=== PATIENT | female | born 2000 | race Two or more races ===

== ENCOUNTER 2024-05-18 15:18 | Emergency (ER) | payer OTHER ==
[~2024-05-18] VITALS: Ht 160 cm; Wt 72.6 kg
[2024-05-18 15:18] VITALS: BP 144/80; TEMP 98.4
[2024-05-18 17:07] VITALS: O2SAT 98
[2024-05-19 15:43] LABS: HIV-1 p24 ANTIGEN NON REACTIVE (NONREACTIVE); HIV-1/2 ANTIBODY NON REACTIVE (NONREACTIVE)
[2024-05-20 02:07] LABS: HEPATITIS B SURFACE AB Reactive (.)
== END 2024-05-18 17:09 | disposition home or self-care (01) ==
LOC: ER 15:18
DX: S61.231A Puncture wound without foreign body of left index finger without damage to nail, initial encounter (principal); W46.0XXA Contact with hypodermic needle, initial encounter; Y93.89 Activity, other specified; Y92.89 Other specified places as the place of occurrence of the external cause; Y99.0 Civilian activity done for income or pay
CPT/HCPCS: 36415; 86706; 86803; 87806